=== PATIENT | female | born 1935 | race Hispanic/Latino ===

== ENCOUNTER 2018-03-12 18:08 | Emergency (ER) | payer OTHER ==
[~2018-03-12 18:08] MED LIST: CARV25TA PO; DILT240C50 PO; GLIP1TAB6 PO; LEVO100T12 PO; SIMV20TA6 PO
[2018-03-12] MEDS ORDERED: ACETAMINOPHEN EXTRA STRENGTH 500 MG TABLET ONE (19:32)
== END 2018-03-12 20:18 | disposition home or self-care (01) ==
LOC: EDH 18:08
DX: S80.01XA Contusion of right knee, initial encounter (principal); E11.9 Type 2 diabetes mellitus without complications; E78.5 Hyperlipidemia, unspecified; I10 Essential (primary) hypertension; Z88.6 Allergy status to analgesic agent; W01.0XXA Fall on same level from slipping, tripping and stumbling without subsequent striking against object, initial encounter; Y93.89 Activity, other specified; Y92.098 Other place in other non-institutional residence as the place of occurrence of the external cause; Y99.8 Other external cause status
CPT/HCPCS: 73562; 73590

== ENCOUNTER 2024-08-08 10:36 | Emergency (ER) | payer MEDICARE ==
[~2024-08-08] VITALS: Ht 157.5 cm; Wt 64.9 kg
[~2024-08-08 10:36] MED LIST changes: +SIMV-43 PO; -SIMV20TA6 PO
--- NOTE | 2024-08-08 11:04 | ERN ---
ED Note History of Present Illness Stated Complaint: PAINFUL HERNIA Chief Complaint: Abdominal Pain Time Seen by MD: 10:37 Time Seen by Midlevel: 10:37 Dictation: The patient is an 89-year-old female with a history of diabetes, hypertension, hyperlipidemia, aortic valve replacement on warfarin who presents to the emergency department with complaints of periumbilical and right lower abdominal pain onset two days ago. Patient denies any nausea or vomiting. Reports some constipation but reports bowel movement prior to arrival. Patient reports she went to go see Dr. Baptiste who sent her over for evaluation of abdominal hernia. Allergies: Coded Allergies: codeine (Verified Allergy, Unknown, 05/22/16) Home Meds Reported Medications Simvastatin (Simvastatin) 20 Mg Tablet, 20 MG PO HS, TAB 05/23/16 Carvedilol (Carvedilol) 25 Mg Tablet, 25 MG PO BID, TAB 05/23/16 Diltiazem HCl (Cartia Xt) 240 Mg Cap.er.24h, 240 MG PO DAILY, CAPSULE.DR 05/23/16 Levothyroxine Sodium (Levothyroxine Sodium) 100 Mcg Tablet, 100 MCG PO ACBKFST, TAB 05/23/16 Glipizide/Metformin HCl (Glipizide-Metformin 5-500 mg) 1 Each Tablet, 1 EACH PO BIDMEALS, TAB 05/23/16 Past Medical History Past Medical History: Diabetes-Type I, Diabetes-Type II, Hypertension, Renal Disese Additional Past Medical Hx: ABDOMINAL HERNIA Surgical History: Pacer/AICD, Other Surgical History Other: BILATERL KNEES History: Not Applicable RN Note Reviewed/Agreed w/PFSH: Yes Review of System Dictation Constitutional: Negative for fever,chills, and weight loss Eyes: Negative for injury, pain,redness, and discharge ENT: Negative for injury,pain or swelling Cardiovascular: Negative for chest pain, palpitations, and edema Respiratory: Negative for shortness of breath, cough, and wheezing, Abdomen/GI: Negative for , nausea, vomiting, diarrhea, and constipation positive for abdominal pain Back: Negative for injury and pain : Negative for injury, bleeding and discharge MS/Extremity: Negative for injury and deformity Skin: Negative for rash, and discoloration Neuro: Negative for headache, weakness, numbness, tingling, and seizure Psych: Negative for suicide ideation, homicidal ideation, and hallucinations Initial Vital Sign VS Vital Signs Date Time Temp Pulse Resp B/P (MAP) Pulse Ox O2 Delivery O2 Flow Rate FiO2 08/08/24 10:52 97.5 82 20 149/63 96 Room Air 08/08/24 12:51 0 21 Physical Exam Dictation Vital Signs reviewed General Appearance: Alert, oriented x 3, no acute distress, well developed, nourished. Head and Face: non-traumatic. Eyes: PERRL, pink conjunctivas, eyelid no trauma, anterior chamber with arcus senilis. Ears: Pinnas intact and no signs of trauma or erythema ear canals clear and no discharge TM no erythema Nose: No discharge, no bleeding. Oropharynx: Mouth normal, tongue pink. pharynx clear,no erythema, tonsils no exudates, no abscesses noted, mucous membrane moist Neck: Supple, non-tender, no thyromegaly, no masses, no JVD, no bruits Breast:Deferred Chest:No tenderness, no crepitus, no paradoxical movement, no retractions Lungs:Clear, well-ventilated, symmetric, no rales, no wheezing, no rhonchi, no stridor, good breath sounds bilaterally Heart: Regular rate, regular rhythm, no murmur, no gallops Vascular: no peripheral edema, Abdomen: Soft, positive bowel sounds, nondistended, no guarding, Periumbilical tenderness,, no rebound, no masses no hepatomegaly, no splenomegaly, no Woo's sign, umbilical hernia reducible. Rectal: Deferred Genital: Deferred Neurological: Normal speech, motor function intact, sensory function intact Musculoskeletal: Neck nontender, full range of motion, back nontender, full range of motion, Extremities: nontender, full range of motion Skin: Color pink, dry, no turgor, no rash, no lacerations, no abrasions, no contusions. Lymphatic: Deferred Results (Laboratory/Radiology) Laboratory/Radiology Laboratory Tests Test 08/08/24 11:18 08/08/24 15:36 White Blood Count 9.8 K/uL (4.8-10.8) Red Blood Count 6.03 MIL/uL (4.00-5.50) H Hemoglobin 18.1 g/dL (12.0-16.0) H Hematocrit 55.9 % (36-48) H Mean Corpuscular Volume 92.7 fL (79-99) Mean Corpuscular Hemoglobin 30.0 pg (27.0-33.0) Mean Corpuscular Hemoglobin Concent 32.4 g/dL (32.0-36.0) Red Cell Distribution Width 15.2 % (11.0-15.5) Platelet Count 105 K/uL (130-400) L Mean Platelet Volume 11.0 fL (7.5-10.5) H Immature Granulocyte % (Auto) 1.1 % (0-1) H Neutrophils (%) (Auto) 86.1 % (40.0-77.0) H Lymphocytes (%) (Auto) 5.7 % (21.0-51.0) L Monocytes (%) (Auto) 6.7 % (3.0-13.0) Eosinophils (%) (Auto) 0.2 % (0.0-8.0) Basophils (%) (Auto) 0.2 % (0.0-5.0) Neutrophils # (Auto) 8.4 K/uL (1.8-7.7) H Lymphocytes # (Auto) 0.6 K/uL (1.0-4.8) L Monocytes # (Auto) 0.7 K/uL (0.1-1.0) Eosinophils # (Auto) 0.02 K/uL (0.00-0.70) Basophils # (Auto) 0.02 K/uL (0.00-0.20) Absolute Immature Granulocyte (auto 0.11 K/uL (0-1) Nucleated Red Blood Cells 0.0 % (0.0-0.19) White Cell Morphology Comment See comments Sodium Level 139 mmol/L (136-145) Potassium Level 4.1 mmol/L (3.5-5.1) Chloride Level 100 mmol/L (101-111) L Carbon Dioxide Level 25 mmol/L (21-32) Blood Urea Nitrogen 25 mg/dL (7-18) H Creatinine 1.4 mg/dL (0.5-1.0) H Glomerular Filtration Rate Calc 36 mL/min (>90) Random Glucose 137 mg/dL (70-105) H Total Calcium 9.3 mg/dL (8.5-10.1) Total Bilirubin 0.9 mg/dL (0.2-1.0) Direct Bilirubin 0.3 mg/dL (0.0-0.3) Aspartate Amino Transf (AST/SGOT) 39 U/L (10-37) H Alanine Aminotransferase (ALT/SGPT) 69 U/L (12-78) Alkaline Phosphatase 125 U/L (50-136) Total Creatine Kinase 22 U/L (21-232) # Troponin I High Sensitivity 19 ng/L (4-50) Total Protein 9.0 g/dL (6.0-8.3) H Albumin 3.9 g/dL (3.5-5.0) Urine Color YELLOW (YELLOW) Urine Appearance CLEAR (CLEAR) Urine pH 5.5 (5.0-8.0) Urine Specific [place] 1.021 (1.001-1.031) Urine Protein 30 mg/dL (NEGATIVE) H Urine Glucose (UA) >=1000 mg/dL (NEGATIVE) H Urine Ketones 5 mg/dL (NEGATIVE) H Urine Occult Blood NEGATIVE (NEGATIVE) Urine Nitrate NEGATIVE (NEGATIVE) Urine Bilirubin NEGATIVE mg/dL (NEGATIVE) Urine Urobilinogen 0.2 mg/dL (0.2-1.0) Urine Leukocyte Esterase NEGATIVE Mauricio/uL Urine RBC 2-5 /HPF (0-1) H Urine WBC 0-1 /HPF (0-1) Urine Squamous Epithelial Cells FEW /HPF (0-2) Urine Bacteria RARE /HPF (None Seen) Urine Yeast FEW /HPF (None Seen) REASON: periumbilical pain, rlq pain ORDERING PHYSICIAN: ROSSANA VILLALOBOS WHEEL ADJUST[employer] PROCEDURE: ABD PEL WO - CT ABDOMEN/PELVIS W/O CONTRAST CT ABDOMEN/PELVIS W/O CONTRAST HISTORY: Periumbilical pain COMPARISON: 12/01/2016 TECHNIQUE: Multiple sequential axial images of the abdomen and pelvis were obtained from the dome of the diaphragm through symphysis pubis. Patient was not given contrast through intravenous route. Oral contrast was not given. FINDINGS: No pleural effusion is seen bilaterally. Prominent interstitial markings are seen. Mild reticular nodular pulmonary infiltrates are present. There may be tiny 5 mm pulmonary nodule versus infiltrates in the right lower lobe posteriorly. Degenerative changes of the thoracolumbar spine are present. The heart is not enlarged. Coronary arterial calcifications are seen. Postcholecystectomy changes are seen. Liver measured 12 cm. There is periumbilical hernia with fat content. The liver, spleen, adrenal glands and pancreas are unremarkable. There is no evidence of hydronephrosis bilaterally. There may be complex hypodense mass in the upper pole of the right kidney measuring 4 x 6 cm. Subcentimeter hypodensities is seen in the left kidney. There are nonspecific bilateral perinephric fat stranding. No evidence of renal stone is seen. There is mild small bowel dilatation may be related to enteritis. Fecal material is seen in the colon. There are normal size retroperitoneal and mesenteric lymph nodes. No ascites is seen. Atherosclerotic changes are present. Pelvic sidewalls are symmetric bilaterally. Bladder is well distended without wall thickening. IMPRESSION: 1. Moderate to the nodular pulmonary infiltrates. Tiny 5 mm pulmonary nodule in the right lower lobe posteriorly. Periumbilical hernia with fat content. 2. There is no evidence of hydronephrosis bilaterally. There may be complex hypodense mass in the upper pole of the right kidney measuring 4 x 6 cm. Subcentimeter hypodensities is seen in the left kidney. There are nonspecific bilateral perinephric fat stranding. No evidence of renal stone is seen. There is mild small bowel dilatation may be related to enteritis. CT was performed with one or more following dose reduction techniques: automated exposure control, adjustment of the mA and kv according to patient's size, or use of a iterative reconstruction technique. Labs Reviewed?: Yes EKG: (+) rhythm (afib/flut Vpaced) EKG Comment: Date:08/08/2024 Time:1104 Ventricular rate:93 AK interval: QRS duration:375 EKG interpretation: Ventricular pace Reviewed by ED Attending no STEMI ED Course ED Course Orders Procedure Category Date Status Time Cbc With Differential LAB 08/08/24 Complete 10:48 Troponin I High LAB 08/08/24 Complete Sensitivity 10:48 Urinalysis Profile LAB 08/08/24 Complete 10:48 12 Lead Ekg Tracing- EKG 08/08/24 Complete Technical 10:48 Creatine Kinase, Total LAB 08/08/24 Complete 10:48 Basic Metabolic Panel LAB 08/08/24 Complete 10:48 Hepatic Function Panel LAB 08/08/24 Complete 10:48 0.9%Nacl 1000ml (Ns PHA 08/08/24 Complete 1000ml) 11:00 Morphine 4mg Syg PHA 08/08/24 Complete (Morphine 4mg Syg) 11:00 Ondansetron 4mg Inj PHA 08/08/24 Complete (Zofran 4mg Inj) 11:00 Ct Abdomen/Pelvis W/O CT 08/08/24 Resulted Contrast 11:53 Current Medications Medications (Trade) Dose Ordered Sig/Donnell Route PRN Reason Start Time Stop Time Status Last Admin Dose Admin Morphine Sulfate (morPHINE 4MG SYG) 4 mg ONCE ONCE IVP 08/08/24 11:00 08/08/24 11:02 DC 08/08/24 11:29 Ondansetron HCl (zoFRAN 4MG INJ) 4 mg ONCE ONCE IVP 08/08/24 11:00 08/08/24 11:02 DC 08/08/24 11:28 Sodium Chloride 1,000 ml @ 125 mls/hr ONCE ONCE IV 08/08/24 11:00 08/08/24 16:22 DC 08/08/24 11:29 Vital Signs Date Time Temp Pulse Resp B/P (MAP) Pulse Ox O2 Delivery O2 Flow Rate FiO2 08/08/24 15:38 98.2 77 16 142/60 95 Room Air* 0 21 08/08/24 13:46 92 16 124/42 95 Room Air* 0 21 08/08/24 12:51 98.2 87 16 137/63 99 Room Air* 0 21 08/08/24 10:52 97.5 82 20 149/63 96 Room Air Medical Decision Making [facility] The patient is an 89-year-old female with a history of diabetes, hypertension, hyperlipidemia, aortic valve replacement on warfarin who presents to the emergency department with complaints of periumbilical and right lower abdominal pain onset two days ago. Patient denies any nausea or vomiting. Reports some constipation but reports bowel movement prior to arrival. Patient reports she went to go see Dr. Baptiste who sent her over for evaluation of abd ominal hernia. CBC showed no leukocytosis, no anemia, low platelets 105, chemistry showed mild hypochloremia, GFR of 36, patient with a history of CKD, negative troponin. It was unremarkable CT abdomen showed periumbilical hernia with fat content. No hydronephrosis. Patient reports improving in pain. In no acute distress. Agrees to follow up with primary doctor. Differential diagnosis: Bowel obstruction, gastroenteritis, UTI, diverticulitis, electrolyte imbalance Need for hospitalization: Patient does not meet criteria for hospitalization. There are no social concerns with this patient. DX & DISP Disposition: Discharge Departure Impression: Primary Impression: Periumbilical hernia Additional Impressions: Abdominal pain, Mild dehydration Condition: Stable Additional Instructions: Please follow up with the primary doctor in 1-2 days. If symptoms worsen please return to ER. FOLLOW-UP WITH PRIMARY CARE PROVIDER IN 1 TO 2 DAYS. TAKE MEDICATIONS DIRECTED HERE IN THE EMERGENCY ROOM. OKAY TO CONTINUE HOME MEDICATIONS UNLESS OTHERWISE DISCUSSED DURING YOUR VISIT IN THE EMERGENCY ROOM TODAY. RETURN TO YOUR NEAREST EMERGENCY ROOM IF SYMPTOMS WORSEN OR IF THERE IS NO IMPROVEMENT. CALL 911 IF YOU NEED IMMEDIATE ASSISTANCE. TAKE TYLENOL OR MOTRIN [id number] NEEDED AND IF NO CONTRAINDICATIONS ARE PRESENT. INCREASE ORAL HYDRATION. A WOUND CULTURE OR URINE CULTURE WAS ORDERED HERE IN THE EMERGENCY ROOM DEPARTMENT PLEASE FOLLOW-UP WITH PRIMARY CARE PROVIDER AND ADVISE THEM TO GET REPEAT PORTS FROM OUR FACILITY. IF YOU HAD ANY FABIO WRAP/SPLINTS THAT WERE APPLIED HERE, PLEASE DO NOT REMOVE THEM UNTIL YOU SEE YOUR PRIMARY CARE OR SPECIALTY. Referrals: ANJUM BAPTISTE (PCP) GLADYS WILLIAM MD Time of Disposition: 16:09 I have reviewed the case, and I agree with, Diagnosis and Plan ROSSANA VILLALOBOS [facility] Aug 08, 2024 11:04
[2024-08-08 11:25] LABS: BASOPHILS # (AUTO) 0.02 K/uL (0.00-0.20); BASOPHILS % (AUTO) 0.2 % (0.0-5.0); EOSINOPHILS # (AUTO) 0.02 K/uL (0.00-0.70); EOSINOPHILS % (AUTO) 0.2 % (0.0-8.0); HEMATOCRIT 55.9 % (36-48); IMMATURE GRANULOCYTE ABSOLUTE 0.11 K/uL (0-1); LYMPHOCYTES # (AUTO) 0.6 K/uL (1.0-4.8); LYMPHOCYTES % (AUTO) 5.7 % (21.0-51.0); MEAN CORPUSCULAR HGB CONC 32.4 g/dL (32.0-36.0); MEAN CORPUSCULAR VOLUME 92.7 fL (79-99); MONOCYTES # (AUTO) 0.7 K/uL (0.1-1.0); MONOCYTES % (AUTO) 6.7 % (3.0-13.0); NEUTROPHILS # (AUTO) 8.4 K/uL (1.8-7.7); NEUTROPHILS % (AUTO) 86.1 % (40.0-77.0); PLATELET COUNT (AUTO) 105 K/uL (130-400); RED BLOOD CELL COUNT(AUTO) 6.03 MIL/uL (4.00-5.50); RED CELL DISTRIBUTION WIDTH 15.2 % (11.0-15.5); WHITE BLOOD COUNT (AUTO) 9.8 K/uL (4.8-10.8)
[2024-08-08] MEDS: ondanSETRON 4MG INJ IVP ONE (11:28)
[2024-08-08] MEDS: 0.9%NACL 1000ML 1,000 ML IV ONE (11:29)
[2024-08-08] MEDS: morPHINE 4 MG SYG IVP ONE (11:29)
[2024-08-08 11:31] LABS: CREATININE 1.4 mg/dL (0.5-1.0); POTASSIUM 4.1 mmol/L (3.5-5.1)
[2024-08-08 11:36] LABS: ALBUMIN 3.9 g/dL (3.5-5.0); BILIRUBIN,DIRECT 0.3 mg/dL (0.0-0.3); BILIRUBIN,TOTAL 0.9 mg/dL (0.2-1.0)
--- NOTE | 2024-08-08 11:53 | EKG ---
[facility] Test Date: 2024-08-08 Test Time: 11:04:29 Pat Name: MARCELLA ALONZO Department: [facility] Room: Gender: Female Odd Ticket Clerk: STUDENT : [id number] Requested By: ROSSANA VILLALOBOS Order Number: [id number] Reading MD: Measurements Intervals [place] Rate: 93 P: 0 LA: 0 QRS: 83 QRSD: 94 T: -77 QT: 375 QTc: 456 Interpretive Statements Afib/flut and V-paced complexes Repol abnrm, severe global ischemia (LM/MVD) No previous ECG available for comparison Please click the below link to view image of tracing.
--- NOTE | 2024-08-08 13:27 | HMCIMG ---
CT ABDOMEN/PELVIS W/O CONTRAST HISTORY: Periumbilical pain COMPARISON: 12/01/2016 TECHNIQUE: Multiple sequential axial images of the abdomen and pelvis were obtained from the dome of the diaphragm through symphysis pubis. Patient was not given contrast through intravenous route. Oral contrast was not given. FINDINGS: No pleural effusion is seen bilaterally. Prominent interstitial markings are seen. Mild reticular nodular pulmonary infiltrates are present. There may be tiny 5 mm pulmonary nodule versus infiltrates in the right lower lobe posteriorly. Degenerative changes of the thoracolumbar spine are present. The heart is not enlarged. Coronary arterial calcifications are seen. Postcholecystectomy changes are seen. Liver measured 12 cm. There is periumbilical hernia with fat content. The liver, spleen, adrenal glands and pancreas are unremarkable. There is no evidence of hydronephrosis bilaterally. There may be complex hypodense mass in the upper pole of the right kidney measuring 4 x 6 cm. Subcentimeter hypodensities is seen in the left kidney. There are nonspecific bilateral perinephric fat stranding. No evidence of renal stone is seen. There is mild small bowel dilatation may be related to enteritis. Fecal material is seen in the colon. There are normal size retroperitoneal and mesenteric lymph nodes. No ascites is seen. Atherosclerotic changes are present. Pelvic sidewalls are symmetric bilaterally. Bladder is well distended without wall thickening. IMPRESSION: 1. Moderate to the nodular pulmonary infiltrates. Tiny 5 mm pulmonary nodule in the right lower lobe posteriorly. Periumbilical hernia with fat content. 2. There is no evidence of hydronephrosis bilaterally. There may be complex hypodense mass in the upper pole of the right kidney measuring 4 x 6 cm. Subcentimeter hypodensities is seen in the left kidney. There are nonspecific bilateral perinephric fat stranding. No evidence of renal stone is seen. There is mild small bowel dilatation may be related to enteritis. CT was performed with one or more following dose reduction techniques: automated exposure control, adjustment of the mA and kv according to patient's size, or use of a iterative reconstruction technique.
[2024-08-08 15:38] VITALS: BP 142/60; PULSE 77; RESP 16; TEMP 98.2; O2SAT 95
[2024-08-08 15:58] LABS: APPEARANCE,URINE CLEAR (CLEAR); BILIRUBIN,URINE NEGATIVE (NEGATIVE); COLOR,URINE YELLOW (YELLOW); GLUCOSE, URINE (UA) >=1000 mg/dL (NEGATIVE); KETONES,URINE 5 mg/dL (NEGATIVE); LEUKOCYTE ESTERASE ,URINE NEGATIVE Leu/uL (NEGATIVE); NITRATE,URINE NEGATIVE (NEGATIVE); OCCULT BLOOD,URINE NEGATIVE (NEGATIVE); PH,URINE 5.5 (5.0-8.0); PROTEIN,URINE 30 mg/dL (NEGATIVE); UROBILINOGEN,URINE 0.2 mg/dL (0.2-1.0)
[2024-08-08 16:03] LABS: ADD UA MICROSCOPIC YES
[2024-08-08 16:06] LABS: BACTERIA,URINE RARE /HPF (None Seen); MUCUS,URINE RARE LPF (None Seen); SQUAMOUS EPITHELIAL CELL,UR FEW /HPF (0-2); WBC,URINE 0-1 /HPF (0-1); YEAST,URINE BUDDING FEW /HPF (None Seen)
== END 2024-08-08 16:15 | disposition home or self-care (01) ==
LOC: EDH 10:36
DX: K42.9 Umbilical hernia without obstruction or gangrene (principal); E86.0 Dehydration; E11.9 Type 2 diabetes mellitus without complications; I10 Essential (primary) hypertension; Z79.899 Other long term (current) drug therapy; Z88.5 Allergy status to narcotic agent; Z95.810 Presence of automatic (implantable) cardiac defibrillator
CPT/HCPCS: 99285; 74176; 96374; 96361; 96375; 82550; 80076; 84484; 80048; 85025; 81001; 36415; 93005; J7030; J2405; J2270